=== PATIENT | female | born 1980 | race Caucasian/White ===

== ENCOUNTER → 2020-10-19 13:30 | Outpatient (CLI) | payer OTHER, SELFPAY ==
--- NOTE | 2020-10-19 13:32 | DI.RAD.S_ITS ---
PROCEDURE: XR ACUTE ABDOMEN SERIES INDICATIONS: abdominal pain/bloating TECHNIQUE: One view chest and two views of the abdomen were acquired. COMPARISON: None. FINDINGS: Surgical changes and devices: None. Chest: Lungs are clear. Heart size is normal. No pleural effusions. No pneumoperitoneum. Abdomen: Bowel gas pattern is normal. No suspicious calcifications. Visualized solid organ contours appear normal. No transition point seen. 4 mm calcifications projecting in the regions of both kidneys, technically nonspecific. Superimposed debris in the intestinal tract is in the differential. Bones: No suspicious bony lesions. Mild levocurvature. IMPRESSION: No specific evidence of bowel obstruction seen at this time although if the patient's symptoms do not improve, continued surveillance with abdominal series radiographs could be performed. Bilateral upper abdominal calcifications, technically nonspecific although if there is clinical suspicion for urolithiasis, CT KUB could be performed. Dictated by: Stan Morales M.D. on 10/19/2020 at 15:06 Approved by: Stan Morales M.D. on 10/19/2020 at 15:08
== END ==
PROVIDERS: PCP Family Medicine; Referring Provider Family Medicine; Visit Provider Family Medicine
DX: R14.0 Abdominal distension (gaseous) (principal); K59.00 Constipation, unspecified; R10.9 Unspecified abdominal pain
CPT/HCPCS: 74022

== ENCOUNTER 2020-10-30 23:17 | Emergency (ER) | payer OTHER, SELFPAY ==
[2020-10-30 23:35] VITALS: BP 151/67; PULSE 82; RESP 17; TEMP 36.9; O2SAT 100; BMI 19.1
--- NOTE | 2020-10-30 23:37 | DI.RAD.S_ITS ---
PROCEDURE: XR CHEST 1V INDICATIONS: chest pain TECHNIQUE: One view of the chest was acquired. COMPARISON: None. FINDINGS: Surgical changes and devices: None. Lungs and pleura: Lungs are clear. No pleural effusions or pneumothorax. Mediastinum: Mediastinal contours appear normal. Heart size is normal. Bones and chest wall: No suspicious bony lesions. Overlying soft tissues appear unremarkable. IMPRESSION: Normal for age, source of current chest pain symptoms is not seen. Dictated by: Vega Falcon M.D. on 10/31/2020 at 7:50 Approved by: Vega Falcon M.D. on 10/31/2020 at 7:50
[2020-10-30 23:48] VITALS: PULSE 70; RESP 30; O2SAT 100
[2020-10-31] VITALS (16 sets, daily range): BP systolic 95–116; BP diastolic 61–74; PULSE 63–80; RESP 12–34; O2SAT 71–100
--- NOTE | 2020-10-31 | ED.CHESTPAIN ---
HPI - Chest Pain General Chief Complaint: Chest Pain Stated Complaint: chest pain Time Seen by Provider: 10/30/20 23:24 Source: patient Mode of arrival: Ambulatory Limitations: no limitations History of Present Illness HPI narrative: 40-year-old female nonsmoker with history of increasing episodes of constipation presents with significant other and a chief complaint of epigastric and lower central chest pain and pressure which started a few hours ago. She states that she was at rest when it began and it has slowly worsened. She denies any obvious provocation, palliation or radiation. She denies other symptoms such as dizziness, weakness or lightheadedness. She denies any shortness of breath, nausea or vomiting. She denies any history of the same. She has had some recent travel but denies any history of blood clot or cancer. Related Data Home Medications Medication Instructions Recorded Confirmed VITAMIN D 800 PO Q DAY #0 07/20/11 10/02/20 Allergies Allergy/AdvReac Type Severity Reaction Status Date / Time Meperidine Allergy Mild Uncoded 04/17/19 08:53 Oxycodone Allergy Mild Uncoded 04/17/19 08:53 Penicillin Allergy Mild Uncoded 04/17/19 08:53 Promethazine Allergy Mild Uncoded 04/17/19 08:53 Review of Systems Constitutional Constitutional: Denies chills, Denies fatigue, Denies fever(s), Denies frequent falls, Denies lethargy and Denies weakness Eyes Eyes: Denies change in vision, Denies eye discharge, Denies irritation and Denies loss of vision ENT Ears, Nose, Mouth, and Throat: Denies change in voice, Denies dizziness, Denies neck pain, Denies sore throat and Denies throat swelling Cardiovascular Cardiovascular: Denies irregular heart rhythm, Denies lightheadedness, Denies palpitations, Denies dyspnea, Denies dyspnea on exertion and Denies orthopnea Respiratory Respiratory: Denies cough, Denies dyspnea, Denies dyspnea on exertion and Denies wheezing Gastrointestinal Gastrointestinal: Denies abdominal pain, Denies change in bowel habits, Denies diarrhea, Denies nausea and Denies vomiting Musculoskeletal Musculoskeletal: Denies neck pain and Denies numbness Integumentary/Breasts Skin/Breast: Denies pruritus, Denies erythema, Denies rash and Denies wounds Neurologic Neurologic: Denies behavioral changes, Denies confusion, Denies dizziness, Denies frequent falls, Denies loss of vision, Denies numbness and Denies weakness Psychiatric Psychiatric: Denies anxiety, Denies behavioral changes, Denies confusion, Denies depression, Denies homicidal ideation and Denies suicidal ideation Endocrine Endocrine: Denies fatigue, Denies flushing and Denies palpitations Hematologic/Lymphatic Hematologic/Lymphatic: Denies easy bruising Allergic/Immunologic Allergic/Immunologic: Denies urticaria, Denies throat swelling and Denies wheezing Patient History Medical History (Updated 10/31/20 @ 03:38 by Vasile Feliz DO) Abdominal bloating Constipation Endometriosis Injury of coccyx Otalgia, left ear Surgical History (Updated 02/09/18 @ 20:24 by Tigist Chung) History of total vaginal hysterectomy (TVH) (~2008) Family History (Updated 04/17/19 @ 09:27 by Eli Torres DO) Mother Age: 78 Cancer Thyroid cancer Uterine cancer Hypertension Osteoporosis Hyperlipidemia Father Age: 80 Hypertension Gout Spinal stenosis Hyperlipidemia TIA (transient ischemic attack) Brother Age: 50 No problems noted. Brother Age: 47 No problems noted. Social History Smoking Status: Never smoker Smoking Status: Never smoker Exam Narrative Exam Narrative: GENERAL: [40] year old patient appears stated age. Well-developed patient, in mild distress. HEAD: Atraumatic. Normocephalic. EYES: Pupils equal round and reactive. Extraocular motions intact. No scleral icterus. No injection or drainage. ENT: Nose without bleeding, purulent drainage. Throat without erythema, tonsillar hypertrophy or exudate. Airway patent. NECK: Trachea midline. Non tender CARDIOVASCULAR: Regular rate and rhythm without murmurs, gallops, or rubs. RESPIRATORY: Clear to auscultation. Breath sounds equal bilaterally. No wheezes, rales, or rhonchi. GASTROINTESTINAL: Abdomen soft, non-tender, nondistended. EXTREMITIES: No edema or joint tenderness. BACK: Nontender without deformity or crepitance. No flank tenderness. NEURO: AOx3. SKIN: No rash or erythema of visible areas Initial Vital Signs Initial Vital Signs: Vital Signs Temperature 98.5 F 10/30/20 23:35 Pulse Rate 82 10/30/20 23:35 Respiratory Rate 17 10/30/20 23:35 Blood Pressure 151/67 H 10/30/20 23:35 Pulse Oximetry 100 10/30/20 23:35 Scores HEART Score Heart Score history: Slightly Suspicious Heart Score EKG: Non-Specific repolarization disturbance Heart Score Age: < 45 years old Heart Score risk factors: No known risk factors Heart Score troponin: < or = to normal limit Heart Score Total: 1 Course Orders Ordered: ED Orders 10/30/20 23:37 XR chest 1V Stat 10/30/20 23:45 Complete Blood Count AUTO DIFF Stat Comprehensive Metabolic Panel Stat Lipase Stat Troponin & CK Cardiac Panel Stat 10/31/20 EKG-12 Lead Stat 10/31/20 00:40 D Dimer Stat 10/31/20 01:36 XR abdomen min 2V Stat 10/31/20 01:55 Troponin I Stat Discontinued Medications Aspirin (Aspirin 81 Mg Chew Tab) 324 mg PO NOW ONE Stop: 10/30/20 23:38 Last Admin: 10/31/20 00:08 Dose: 324 mg Documented by: GAYE Sodium Chloride (Normal Saline 0.9%) 1,000 mls @ 150 mls/hr IV CONT STACIE Last Infusion: 10/31/20 04:04 Dose: 1,540 mls/hr Documented by: Admin: 10/31/20 00:04 Dose: 150 mls/hr Documented by: GAYE Vital Signs Vital signs: Vital Signs - 8 hr 10/30/20 23:35 10/30/20 23:48 10/31/20 00:00 Temperature 98.5 F Pulse Rate 82 70 63 Respiratory Rate 17 30 H 29 H Blood Pressure 151/67 H 115/68 Pulse Oximetry 100 100 100 10/31/20 00:15 10/31/20 00:30 10/31/20 00:45 Temperature Pulse Rate 69 72 74 Respiratory Rate 15 14 12 Blood Pressure 112/72 107/74 103/72 Pulse Oximetry 100 100 100 10/31/20 01:00 10/31/20 01:15 10/31/20 01:30 Temperature Pulse Rate 74 75 77 Respiratory Rate 17 19 20 Blood Pressure 101/66 103/66 116/73 Pulse Oximetry 100 100 100 10/31/20 01:52 10/31/20 02:00 10/31/20 02:15 Temperature Pulse Rate 80 67 66 Respiratory Rate 20 18 28 H Blood Pressure 104/67 103/68 103/63 Pulse Oximetry 71 L 100 100 10/31/20 02:30 10/31/20 02:45 10/31/20 03:00 Temperature Pulse Rate 71 68 66 Respiratory Rate 34 H 33 H 29 H Blood Pressure 95/62 99/65 99/67 Pulse Oximetry 100 100 100 10/31/20 03:15 10/31/20 03:30 10/31/20 04:00 Temperature Pulse Rate 68 64 76 Respiratory Rate 21 21 Blood Pressure 101/63 96/61 Pulse Oximetry 99 99 98 MDM - Chest Pain Lab Data Result diagrams: 10/30/20 23:45 10/30/20 23:45 Labs: Lab Results 10/30/20 10/30/20 10/31/20 Range/Units 23:45 23:45 00:40 WBC 5.0 (4.5-11.0) X10^3/uL RBC 4.29 (4.0-5.2) X10^6/uL Hgb 13.5 (12.0-16.0) g/dL Hct 40.6 (36-46) % MCV 94.4 (80-100) fL MCH 31.4 (26-34) PG MCHC 33.3 (30-36) % RDW 12.6 (11.6-14.8) % Plt Count 164 (150-400) X10^3/uL Neut % (Auto) 28.3 L (50-75) % Lymph % (Auto) 60.1 H (25-40) % [place] % (Auto) 8.7 (3-14) % Eos % (Auto) 2.3 (2-4) % Baso % (Auto) 0.6 (0-2) % Neut # (Auto) 1400 L (1899-5377) /uL Lymph # (Auto) 3000 (3649-3599) /uL [place] # (Auto) 400 (0-900) /uL Eos # (Auto) 100 (0-450) /uL Baso # (Auto) 0 (0-100) /uL D-Dimer < 200 (<230) ng/mL Sodium 137 (137-145) mmol/L Potassium 3.7 (3.4-5.1) mmol/L Chloride 103 (98-107) mmol/L Carbon Dioxide 25 (22-32) mmol/L BUN 11 (7-17) mg/dL Creatinine 0.68 (0.52-1.04) mg/dL Estimated GFR > 60.0 (>60) mL/min BUN/Creatinine Ratio 16.2 (6-22) Glucose 83 (70-100) mg/dL Calcium 9.1 (8.4-10.2) mg/dL Total Bilirubin 0.4 (0.2-1.3) mg/dL AST 23 (14-36) IU/L ALT 14 (<35) IU/L Alkaline Phosphatase 32 L (38-126) U/L Total Creatine Kinase 46 (30-135) U/L CK-MB (CK-2) TNP CK-MB (CK-2) Rel Index TNP Troponin I < 0.012 (0.01-0.034) ng/mL Total Protein 7.1 (6.3-8.2) g/dL Albumin 4.3 (3.5-5.0) g/dL Globulin 2.8 (1.7-4.1) g/dL Albumin/Globulin Ratio 1.5 (1.0-2.8) Lipase 139 (23-300) U/L 10/31/20 Range/Units 01:55 WBC (4.5-11.0) X10^3/uL RBC (4.0-5.2) X10^6/uL Hgb (12.0-16.0) g/dL Hct (36-46) % MCV (80-100) fL MCH (26-34) PG MCHC (30-36) % RDW (11.6-14.8) % Plt Count (150-400) X10^3/uL Neut % (Auto) (50-75) % Lymph % (Auto) (25-40) % [place] % (Auto) (3-14) % Eos % (Auto) (2-4) % Baso % (Auto) (0-2) % Neut # (Auto) (4771-1839) /uL Lymph # (Auto) (1320-7146) /uL [place] # (Auto) (0-900) /uL Eos # (Auto) (0-450) /uL Baso # (Auto) (0-100) /uL D-Dimer (<230) ng/mL Sodium (137-145) mmol/L Potassium (3.4-5.1) mmol/L Chloride (98-107) mmol/L Carbon Dioxide (22-32) mmol/L BUN (7-17) mg/dL Creatinine (0.52-1.04) mg/dL Estimated GFR (>60) mL/min BUN/Creatinine Ratio (6-22) Glucose (70-100) mg/dL Calcium (8.4-10.2) mg/dL Total Bilirubin (0.2-1.3) mg/dL AST (14-36) IU/L ALT (<35) IU/L Alkaline Phosphatase (38-126) U/L Total Creatine Kinase (30-135) U/L CK-MB (CK-2) CK-MB (CK-2) Rel Index Troponin I < 0.012 (0.01-0.034) ng/mL Total Protein (6.3-8.2) g/dL Albumin (3.5-5.0) g/dL Globulin (1.7-4.1) g/dL Albumin/Globulin Ratio (1.0-2.8) Lipase (23-300) U/L Imaging Data Abdominal x-ray: Radiologist's Impression: Nonspecific but nonobstructive bowel gas pattern. Mild colonic fecal burden at the level of the ascending and descending colon, possible bilateral nephrolithiasis MDM Narrative Medical decision making narrative: Multiple causes of chest pain considered including MO, PE, pneumothorax, pneumonia, aortic dissection, and pleurisy. Patient reports no radiation, no diaphoresis, no provocation with exertion, and no vomiting. Multiple EKGs are nonischemic and troponin x2 is undetectable. Pulmonary embolism considered and though pretest probability is extremely low D-dimer was ordered which was also negative. Other diagnoses such as biliary and pancreatic considered but thought unlikely given lack of reproducible pain and lab abnormalities. Esophageal spasm, ulcer and other GI symptoms considered likely given presentation. Return precautions given and questions answered to her apparent satisfaction. Discharge Plan Departure Patient Disposition: Home Clinical Impression: Atypical chest pain Instructions: DI for Atypical Chest Pain Activity Restrictions/Additional Instructions: *You have been diagnosed with [atypical chest pain. Lab work, EKGs and imaging are all very reassuring. Heart attack, blood clot, pneumonia and other serious conditions were considered but thought very unlikely] *What to do: *Please continue to take your regular medications as directed. [ ] New medication prescriptions sent to your pharmacy: [ ] [ ] New medication written as a paper prescription [ x] No new medications given *Please follow up with your primary care provider in 2-3 days, call for an appointment. Let them know you were seen in the Emergency Department and that we ask that you be seen in follow up. We will electronically transmit a record of today's note if your PCP is in our system *If you do not have a primary care provider please contact the [facility] Resource line at [phone]. They will ask some questions about your medical history and help get you set up with a doctor in the community. *Return to Emergency Department if you should have any new, worsening or concerning symptoms, such as [fever greater than 101 F, shaking chills, worsening pain, persistent vomiting or other bothersome symptoms] Prescriptions: No Action VITAMIN D 800 PO Q DAY Qty: 0 RF: 0 Referrals: Eli Torres DO [Primary Care Provider] -
[2020-10-31 00:01] LABS: Add Manual Diff / Slide Review NO; Basophils Absolute Auto 0 /uL (0-100); Basophils Percent Auto 0.6 % (0-2); Eosinophils Absolute Auto 100 /uL (0-450); Eosinophils Percent Auto 2.3 % (2-4); Hematocrit 40.6 % (36-46); Hemoglobin 13.5 g/dL (12.0-16.0); Lymphocytes Absolute Auto 3000 /uL (1100-4500); Lymphocytes Percent Auto 60.1 % (25-40); Mean Corpuscular HGB Conc 33.3 % (30-36); Mean Corpuscular Hemoglobin 31.4 PG (26-34); Mean Corpuscular Volume 94.4 fL (80-100); Monocytes Absolute Auto 400 /uL (0-900); Monocytes Percent Auto 8.7 % (3-14); Neutrophils Absolute Auto 1400 /uL (1500-7000); Neutrophils Percent Auto 28.3 % (50-75); Platelet Count 164 X10^3/uL (150-400); Red Blood Cell Count 4.29 X10^6/uL (4.0-5.2); Red Cell Distribution Width 12.6 % (11.6-14.8)
[2020-10-31] MEDS: SODIUM CHLORIDE 0.9% 1,000 ML 150 ML IV (00:04)
[2020-10-31 00:05] LABS: Alanine Aminotransferase 14 IU/L (<35); Albumin 4.3 g/dL (3.5-5.0); Albumin Globulin Ratio 1.5 (1.0-2.8); Alkaline Phosphatase 32 U/L (38-126); Aspartate Aminotransferase 23 IU/L (14-36); BUN Creatinine Ratio 16.2 (6-22); Bilirubin Total 0.4 mg/dL (0.2-1.3); Blood Urea Nitrogen 11 mg/dL (7-17); Calcium 9.1 mg/dL (8.4-10.2); Carbon Dioxide 25 mmol/L (22-32); Chloride 103 mmol/L (98-107); Creatine Kinase 46 U/L (30-135); Estimated Glomerular Filt Rate > 60.0 mL/min (>60); Globulin 2.8 g/dL (1.7-4.1); Glucose 83 mg/dL (70-100); HEMOLYSIS < 15 (0-50); Lipase 139 U/L (23-300); Potassium 3.7 mmol/L (3.4-5.1); Sodium 137 mmol/L (137-145); Total Protein 7.1 g/dL (6.3-8.2)
[2020-10-31] MEDS: ASPIRIN 81 MG CHEW TAB 324 MG PO (00:08)
[2020-10-31 00:17] LABS: Troponin I < 0.012 ng/mL (0.01-0.034)
[2020-10-31 01:16] LABS: D Dimer < 200 ng/mL (<230)
--- NOTE | 2020-10-31 01:36 | DI.RAD.S_ITS ---
PROCEDURE: XR ABDOMEN MIN 2V INDICATIONS: chest pain, constipation TECHNIQUE: 2 views of the abdomen were acquired. COMPARISON: None. FINDINGS: Surgical changes and devices: None. Bowel: No pneumoperitoneum. The bowel gas pattern is normal. Moderate fecal debris. Soft tissues: No masses; visualized solid organ contours appear normal in size. Bilateral calcified renal stones are noted. Bones: No suspicious bony abnormalities. IMPRESSION: 1. Bilateral nephrolithiasis. 2. Moderate fecal debris. Comment: Final report is concordant with preliminary interpretation provided by [facility]. Dictated by: Akhil Jacobsen M.D. on 10/31/2020 at 8:48 Approved by: Akhil Jacobsen M.D. on 10/31/2020 at 8:49
[2020-10-31 02:26] LABS: Troponin I < 0.012 ng/mL (0.01-0.034)
== END 2020-10-31 04:03 | disposition home or self-care (01) ==
PROVIDERS: Emergency Provider Emergency Medicine; PCP Family Medicine
DX: R07.89 Other chest pain (principal); R10.13 Epigastric pain
CPT/HCPCS: 36415; 71045; 74019; 80053; 82550; 82553; 83690; 84484; 85025; 85379; 93005; 96360; 96361; 99284

== ENCOUNTER → 2020-11-03 12:33 | Outpatient (CLI) | payer OTHER, SELFPAY ==
[2020-11-03 15:25] LABS: TSH w/ Reflex to FT4 1.41 uIU/mL (0.47-4.68)
== END ==
PROVIDERS: PCP Family Medicine; Referring Provider Nurse Practitioner Family; Visit Provider Nurse Practitioner Family
DX: K59.00 Constipation, unspecified (principal)
CPT/HCPCS: 84443

== ENCOUNTER → 2020-11-30 12:47 | Outpatient (CLI) | payer OTHER, SELFPAY ==
--- NOTE | 2020-11-30 | DI.CT.S_ITS ---
PROCEDURE: CT KIDNEY URETER BLADDER (KUB) INDICATIONS: HISTORY OF CALCULUS OF KIDNEY TECHNIQUE: Axial sections were acquired from the lung bases to the pubic symphysis. Coronal and sagittal reformats were performed. For radiation dose reduction, the following was used: automated exposure control, adjustment of mA and/or kV according to patient size. COMPARISON: None. FINDINGS: Image quality: Excellent. Lung bases: Unremarkable. Heart: No significant findings. URINARY: Right Kidney: No stones or hydronephrosis. Right Ureter: No hydroureter. Left Kidney: No stones or hydronephrosis. Left Ureter: No hydroureter. Bladder: Decompressed. No stones. ABDOMEN: Liver: Calcified granuloma. Small cyst in the right lobe of the liver. Gallbladder: Unremarkable. Biliary ducts: Unremarkable. Pancreas: Unremarkable. Spleen: Unremarkable. Adrenal Glands: Unremarkable. Stomach and Bowel: Stomach, small bowel loops, and colon are unremarkable. Peritoneum: No abnormal intraperitoneal fluid. No free air. Ventral Wall: No hernia. Abdominal Nodes: No enlarged retroperitoneal or mesenteric lymph nodes. Vessels: Aorta and inferior vena cava are normal in size. PELVIS: Pelvic Organs: Uterus is absent. Pelvic Nodes: Unremarkable. Miscellaneous: No inguinal hernias are seen. Bones: Unremarkable. IMPRESSION: 1. No kidney stones. No hydronephrosis. 2. No dilated loops of bowel seen. No free fluid. Dictated by: Joel Ayon M.D. on 11/30/2020 at 14:45 Approved by: Joel Ayon M.D. on 11/30/2020 at 14:52
--- NOTE | 2020-11-30 12:48 | DI.CT.S_ITS ---
PROCEDURE: CT ABDOMEN PELVIS W CON INDICATIONS: acute onset constipation now with thin stools, epigastric pa TECHNIQUE: After the administration of oral and intravenous contrast, axial sections were acquired from the lung bases to the pubic symphysis. Coronal and sagittal reformats were performed. For radiation dose reduction, the following was used: automated exposure control, adjustment of mA and/or kV according to patient size. COMPARISON:[facility], CT, CT KIDNEY URETER BLADDER (KUB), 11/30/2020, 13:00. FINDINGS: Image quality: Excellent. Lung bases: Unremarkable. Heart: No significant findings. ABDOMEN: Liver: Subcentimeter probable right lobe liver cyst versus hemangioma. Otherwise unremarkable. Gallbladder: Unremarkable. Biliary ducts: Unremarkable. Pancreas: Unremarkable. Spleen: Unremarkable. Adrenal Glands: Unremarkable. Kidneys and Ureters: Unremarkable. Stomach and Bowel: Stomach, small bowel loops, and colon are unremarkable. The colon is redundant. Moderate fecal load. Peritoneum: No abnormal intraperitoneal fluid. No free air. Ventral Wall: No hernia. Abdominal Nodes: No retroperitoneal or mesenteric adenopathy by size criteria. Vessels: Aorta and inferior vena cava are normal in size. PELVIS: Pelvic Organs: Uterus is surgically absent. Bladder: Unremarkable. Pelvic Nodes: No enlarged lymph nodes. Miscellaneous: No inguinal hernias are seen. Bones: Unremarkable. IMPRESSION: 1. No evidence of acute abdominal process. 2. Redundant colon with moderate fecal load. Dictated by: Akhil Jacobsen M.D. on 11/30/2020 at 16:25 Approved by: Akhil Jacobsen M.D. on 11/30/2020 at 16:30
== END ==
PROVIDERS: PCP Family Medicine; Referring Provider Urology; Visit Provider Urology
DX: R10.13 Epigastric pain (principal); Q43.8 Other specified congenital malformations of intestine; R63.4 Abnormal weight loss; K59.00 Constipation, unspecified; R19.8 Other specified symptoms and signs involving the digestive system and abdomen; Z87.442 Personal history of urinary calculi
CPT/HCPCS: 74176; 74177

== ENCOUNTER → 2020-12-21 08:44 | Outpatient (CLI) | payer OTHER, SELFPAY ==
[2020-12-21 13:59] LABS: COVID19 -Nasal RAPID Negative (Negative)
== END ==
PROVIDERS: PCP Family Medicine; Visit Provider Nurse Practitioner
DX: Z20.822 Contact with and (suspected) exposure to COVID-19 (principal); Z01.812 Encounter for preprocedural laboratory examination
CPT/HCPCS: 87635

== ENCOUNTER 2020-12-22 09:36 | Day surgery (SDC) | payer OTHER, SELFPAY ==
[2020-12-22] MEDS: SODIUM CHLORIDE 0.9% 1,000 ML 100 ML IV (09:53)
[2020-12-22 09:58] VITALS: BP 105/69; PULSE 86; RESP 20; TEMP 36.7; O2SAT 100; BMI 19.5
--- NOTE | 2020-12-22 10:06 | P.HP_ITS ---
History of Present Illness History of Present Illness Date Patient Seen: 12/22/20 Time Patient Seen: 10:06 [place] [facility] [place] History Medical History Abdominal bloating Altered bowel function (08/2020) Constipation Endometriosis Injury of coccyx Otalgia, left ear Weight loss, unintentional (09/2020) Surgical History History of total vaginal hysterectomy (TVH) (~2008) Family & Social History Family History Mother Age: 78 Cancer Thyroid cancer Uterine cancer Hypertension Osteoporosis Hyperlipidemia Father Age: 80 Hypertension Gout Spinal stenosis Hyperlipidemia TIA (transient ischemic attack) Brother Age: 50 No problems noted. Brother Age: 48 No problems noted. Tobacco & Substance use: Smoking Status Never smoker Meds Home Medications and Allergies Home Medications Medication Instructions Recorded Confirmed Type VITAMIN D 800 PO Q DAY PRN #0 11/11/20 History estradiol SUBCUT [id number] 11/11/20 11/11/20 History testosterone implant pellet IMPLANT Q3M 11/11/20 History Allergies Allergy/AdvReac Type Severity Reaction Status Date / Time Meperidine Allergy Mild Uncoded 12/22/20 09:55 Oxycodone Allergy Mild Uncoded 12/22/20 09:55 Penicillin Allergy Mild Uncoded 12/22/20 09:55 Promethazine Allergy Mild Uncoded 12/22/20 09:55 Review of Systems Review of Systems ROS: Yes All systems reviewed with the patient and are negative except as otherwise documented Exam Const General: cooperative and comfortable Orientation: alert [facility] Head: normocephalic Ears: external ears normal Nose: external nose normal Face and sinus: normal facial exam Mouth: oral mucosae normal Eyes General: appearance normal, both eyes and all related structures Neck Neck: normal visual inspection Chest Chest: normal inspection of the chest Resp Effort & Inspection: normal respiratory effort Auscultation: clear to auscultation bilaterally Cardio Rate: regular rate Rhythm: regular rhythm Heart Sounds: no murmurs GI Inspection: normal to inspection Palpation: soft and No tender Auscultation: normal bowel sounds Skin General: no rashes or lesions noted and No jaundice Neuro General: patient alert and moves all extremities Cognition: normal cognition Speech: speech normal Extrem General: no pedal edema Psych Appearance: grossly normal Assessment & Plan Assessment & Plan narrative: Altered bowel habit, weight loss, right lower quadrant pain. Colonoscopy is planned for today.
--- NOTE | 2020-12-22 10:08 | PM.PREOP ---
Pre-operative Note COVID-19 COVID-19 status: Negative Result date/Date tested (Pos, Neg/Pending): 12/21/20 Interval Note History & Physical reviewed/Exam performed by Physician: Yes Changes to H&P: No ASA Class (for procedural sedation): II
[2020-12-22] MEDS: MIDAZOLAM 5 MG/5 ML VIAL IV (10:20)
[2020-12-22] MEDS: fentaNYL 250 MCG/5 ML INJ IV (10:20)
--- NOTE | 2020-12-22 10:40 | PM.OP.ENDO ---
Operative Date/Time/Diagnoses Date of procedure: 12/22/20 Time of procedure: 10:41 Pre-op diagnosis: Change in bowel habit right lower quadrant pain weight loss Post-op diagnosis: same Procedure & Clinicians Same procedure as scheduled: Yes Indications: Change in bowel habit right lower quadrant pain and a weight loss Surgeon: Clayton Meade Procedure Notes SCOAP/Timeout: Done Procedure in detail: After the risks and benefits were explained, written and verbal informed consent was obtained. The patient was brought into the procedure room and placed into the left lateral decubitus position. Conscious sedation medication was applied as per nursing documentation. Digital rectal examination was accomplished. The scope was introduced into the patient and advanced under direct visualization to the cecum as identified by the appendiceal orifice and ileocecal valve. The scope was slowly withdrawn to carefully examine the mucosa for any defects or lesions. Comprehensive imaging was accomplished throughout the rectum including the dentate line. The colon was decompressed, the scope was then removed from the patient who tolerated the procedure well. Scope withdrawal time: 7 minutes Sedation minutes: 21 Specimen(s): none sent Complications: none Impression: Patient had an exceedingly tortuous sigmoid colon. We applied a small amount of right lower quadrant pressure to enable the scope to navigate through this location. That said there is no evidence of any proctocolitis no strictures no mass lesions no mucosal pathology to account for her reported symptoms. There was some superficial subepithelial erythema noted in the rectum consistent with prep artifact. The terminal ileum was interrogated and appeared normal. Endoscopic diagnosis Visually normal colonoscopy and terminal ileoscopy Post-procedure Plan for aftercare: Patient is encouraged to engage in a fairly aggressive bowel regimen for soft regular movements. Follow-up in GI clinic on an as-needed basis. (patient indicates that prior to colonoscopy weight has stabilized) follow-up in primary care as before. Disposition: PACU
[2020-12-22 10:44] VITALS: BP 95/48; PULSE 74; RESP 18; TEMP 36.5; O2SAT 100
[2020-12-22 10:48] VITALS: BP 92/55; PULSE 77; RESP 16; O2SAT 100
[2020-12-22 10:54] VITALS: BP 98/58; PULSE 84; RESP 15; TEMP 36.7; O2SAT 100
[2020-12-22 11:03] VITALS: BP 103/58; PULSE 67; RESP 14; TEMP 36.7; O2SAT 100
== END 2020-12-22 11:22 | disposition home or self-care (01) ==
PROVIDERS: PCP Family Medicine; Referring Provider Internal Medicine Gastroenterology; Visit Provider Internal Medicine Gastroenterology
PROC: 0DJD8ZZ Inspection of Lower Intestinal Tract, Via Natural or Artificial Opening Endoscopic (ICD-10-PCS; CPT 45378; principal; 2020-12-22 10:30)
DX: R19.4 Change in bowel habit (principal); R10.31 Right lower quadrant pain; R63.4 Abnormal weight loss
CPT/HCPCS: 45378; J2250; J3010

== ENCOUNTER 2022-07-13 15:36 | Emergency (ER) | payer OTHER, SELFPAY ==
[2022-07-13 15:47] VITALS: BP 148/80; PULSE 97; RESP 16; TEMP 37.2; O2SAT 100; BMI 22.1
--- NOTE | 2022-07-13 15:50 | DI.RAD.S_ITS ---
PROCEDURE: XR CHEST 1V INDICATIONS: chest pain TECHNIQUE: One view of the chest was acquired. COMPARISON: [facility], CR, XR CHEST 1V, 10/30/2020, 23:54. FINDINGS: Surgical changes and devices: None. Lungs and pleura: Lungs are clear. No pleural effusions or pneumothorax. Mediastinum: Mediastinal contours appear normal. Heart size is normal. Bones and chest wall: No suspicious bony lesions. Overlying soft tissues appear unremarkable. IMPRESSION: No evidence acute pulmonary process. Dictated by: Akhil Jacobsen M.D. on 07/13/2022 at 16:11 Approved by: Akhil Jacobsen M.D. on 07/13/2022 at 16:12
[2022-07-13 16:25] LABS: Add Manual Diff / Slide Review NO; Basophils Absolute Auto 0 /uL (0-100); Basophils Percent Auto 0.5 % (0-2); Eosinophils Absolute Auto 100 /uL (0-450); Hematocrit 41.6 % (36-46); Hemoglobin 13.9 g/dL (12.0-16.0); Lymphocytes Absolute Auto 2400 /uL (1100-4500); Mean Corpuscular HGB Conc 33.3 % (30-36); Mean Corpuscular Hemoglobin 31.4 PG (26-34); Mean Corpuscular Volume 94.1 fL (80-100); Monocytes Absolute Auto 500 /uL (0-900); Monocytes Percent Auto 8.1 % (3-14); Neutrophils Absolute Auto 3400 /uL (1500-7000); Neutrophils Percent Auto 52.4 % (50-75); Platelet Count 195 X10^3/uL (150-400); Prothrombin Time 11.3 SECONDS (10.1-12.7); Red Blood Cell Count 4.42 X10^6/uL (4.0-5.2); Red Cell Distribution Width 12.6 % (11.6-14.8); White Blood Cell Count 6.4 X10^3/uL (4.5-11.0)
[2022-07-13 16:28] LABS: PTT Partial Thromboplastin Tim 31 SECONDS (26-36)
[2022-07-13 16:34] LABS: Alanine Aminotransferase 23 IU/L (<35); Albumin 4.4 g/dL (3.5-5.0); Albumin Globulin Ratio 1.3 (1.0-2.8); Alkaline Phosphatase 36 U/L (38-126); Aspartate Aminotransferase 24 IU/L (14-36); BUN Creatinine Ratio 14.8 (6-22); Bilirubin Total 0.5 mg/dL (0.2-1.3); Blood Urea Nitrogen 12 mg/dL (7-17); Calcium 8.6 mg/dL (8.4-10.2); Carbon Dioxide 29 mmol/L (22-32); Chloride 102 mmol/L (98-107); Creatine Kinase 41 U/L (30-135); Estimated Glomerular Filt Rate > 60 mL/min (>60); Globulin 3.3 g/dL (1.7-4.1); Glucose 79 mg/dL (70-100); HEMOLYSIS < 15 (0-50); Lipase 96 U/L (23-300); Magnesium 1.9 mg/dL (1.6-2.3); Potassium 3.8 mmol/L (3.4-5.1); Sodium 138 mmol/L (137-145); Total Protein 7.7 g/dL (6.3-8.2)
[2022-07-13 16:45] LABS: Troponin I < 0.012 ng/mL (0.01-0.034)
[2022-07-13 18:56] VITALS: BP 138/67; RESP 18; O2SAT 100
[2022-07-13 19:00] VITALS: O2SAT 100
[2022-07-13 19:53] LABS: Troponin I < 0.012 ng/mL (0.01-0.034)
--- NOTE | 2022-07-13 20:13 | ED_ITS ---
HPI - Chest Pain General Chief Complaint: Chest Pain Stated Complaint: chest pain Time Seen by Provider: 07/13/22 18:53 Mode of arrival: Family Vehicle History of Present Illness HPI narrative: Patient is a healthy 42-year-old female who presents today with chest discomfort. She reports that it is on her left side it lasts for about 3 minutes comes and goes frequently throughout the day. It has been ongoing for a number of weeks. It when it is present it is reproducible with palpation. She is not significantly short of breath it does not radiate. She reports that she was COVID positive June 17 she took Paxil COVID since then she is had kind of cough. She thought it was just post COVID symptoms. However she continues to get these intermittent chest discomfort on the left side, she saw her lap cutter today who recommended that she come be evaluated. Pain is really not any worse with positioning. Related Data Home Medications Medication Instructions Recorded Confirmed VITAMIN D 800 PO Q DAY PRN ##0 11/11/20 03/21/22 estradiol SUBCUT [id number] 11/11/20 03/21/22 testosterone implant pellet implant Q3M 11/11/20 03/21/22 Previous Rx's Medication Instructions Recorded capsaicin-skin cleanser 8 % See Rx Instructions topical 07/15/21 topical kit (Qutenza) .COMPLEX #4 ea Allergies Allergy/AdvReac Type Severity Reaction Status Date / Time meperidine Allergy Mild Verified 07/13/22 15:50 oxycodone Allergy Mild Verified 07/13/22 15:50 Penicillins Allergy Mild Verified 07/13/22 15:50 promethazine Allergy Mild Verified 07/13/22 15:50 Review of Systems Review of Systems ROS Unobtainable: All systems reviewed & are unremarkable except as noted in HPI and below Patient History Medical History Abdominal bloating Altered bowel function (08/2020) Constipation Endometriosis Injury of coccyx Otalgia, left ear Weight loss, unintentional (09/2020) Surgical History History of total vaginal hysterectomy (TVH) (~2008) Family History Mother Age: 80 Cancer Thyroid cancer Uterine cancer Hypertension Osteoporosis Hyperlipidemia Father Age: 82 Hypertension Gout Spinal stenosis Hyperlipidemia TIA (transient ischemic attack) Brother Age: 52 No problems noted. Brother Age: 49 No problems noted. Social History household members: spouse Smoking Status: Never smoker Smoking Status: Never smoker Substance Use Type: does not use Exam Initial Vital Signs Initial Vital Signs: Vital Signs Temperature 98.9 F 07/13/22 15:47 Pulse Rate 97 H 07/13/22 15:47 Respiratory Rate 16 07/13/22 15:47 Blood Pressure 148/80 H 07/13/22 15:47 Pulse Oximetry 100 07/13/22 15:47 Oxygen Delivery Method Room Air 07/13/22 15:47 GENERAL: Alert pleasant 42-year-old female and in no acute distress. HEENT: Head atraumatic,EOMI, pupils reactive, face symmetric, moist mucous membranes CARDIOVASCULAR: Regular rate and rhythm without murmurs, rubs or gallops. RESPIRATORY: Breath sounds equal bilaterally, no wheezes rales or rhonchi. Pain anteriorly between ribs 4 and 6 on the left side reproducible to touch ABDOMEN: Soft, nontender. Normoactive bowel sounds all 4 quadrants. No guarding or rebound. EXTREMITIES: Normal range of motion, no clubbing or edema. Neurovascularly intact NEUROLOGICAL: Alert and oriented x4. SKIN: Warm, dry, no laceration, no petechiae, no rashes or lesions. Scores HEART Score Heart Score history: Slightly Suspicious Heart Score EKG: Normal Heart Score Age: < 45 years old Heart Score risk factors: No known risk factors Heart Score troponin: < or = to normal limit Heart Score Total: 0 Course Orders Ordered: ED Orders 07/13/22 19:08 Trop I [Troponin I] Stat Discontinued Medications Aspirin (Aspirin 81 Mg Chew Tab) 324 mg PO NOW ONE Stop: 07/13/22 15:51 Last Admin: 07/13/22 20:27 Dose: Not Given Documented By: PAULETTE Vital Signs Vital signs: Vital Signs - 8 hr 07/13/22 15:47 Temperature 98.9 F Pulse Rate 97 H Respiratory Rate 16 Blood Pressure 148/80 H Pulse Oximetry 100 Oxygen Delivery Method Room Air MDM - Chest Pain Lab Data 07/13/22 16:09 07/13/22 16:09 Labs: Lab Results 07/13/22 07/13/22 07/13/22 Range/Units 16:09 16:09 16:09 WBC 6.4 (4.5-11.0) X10^3/uL RBC 4.42 (4.0-5.2) X10^6/uL Hgb 13.9 (12.0-16.0) g/dL Hct 41.6 (36-46) % MCV 94.1 (80-100) fL MCH 31.4 (26-34) PG MCHC 33.3 (30-36) % RDW 12.6 (11.6-14.8) % Plt Count 195 (150-400) X10^3/uL Neut % (Auto) 52.4 (50-75) % Lymph % (Auto) 37.0 (25-40) % [place] % (Auto) 8.1 (3-14) % Eos % (Auto) 2.0 (2-4) % Baso % (Auto) 0.5 (0-2) % Neut # (Auto) 3400 (5320-6370) /uL Lymph # (Auto) 2400 (9101-4481) /uL [place] # (Auto) 500 (0-900) /uL Eos # (Auto) 100 (0-450) /uL Baso # (Auto) 0 (0-100) /uL PT 11.3 (10.1-12.7) SECONDS INR 1.0 (0.9-1.3) APTT 31 (26-36) SECONDS Sodium 138 (137-145) mmol/L Potassium 3.8 (3.4-5.1) mmol/L Chloride 102 (98-107) mmol/L Carbon Dioxide 29 (22-32) mmol/L BUN 12 (7-17) mg/dL Creatinine 0.81 (0.52-1.04) mg/dL Estimated GFR > 60 (>60) mL/min BUN/Creatinine Ratio 14.8 (6-22) Glucose 79 (70-100) mg/dL Calcium 8.6 (8.4-10.2) mg/dL Magnesium 1.9 (1.6-2.3) mg/dL Total Bilirubin 0.5 (0.2-1.3) mg/dL AST 24 (14-36) IU/L ALT 23 (<35) IU/L Alkaline Phosphatase 36 L (38-126) U/L Total Creatine Kinase 41 (30-135) U/L CK-MB (CK-2) TNP CK-MB (CK-2) Rel Index TNP Troponin I < 0.012 (0.01-0.034) ng/mL Total Protein 7.7 (6.3-8.2) g/dL Albumin 4.4 (3.5-5.0) g/dL Globulin 3.3 (1.7-4.1) g/dL Albumin/Globulin Ratio 1.3 (1.0-2.8) Lipase 96 (23-300) U/L 07/13/22 Range/Units 19:08 WBC (4.5-11.0) X10^3/uL RBC (4.0-5.2) X10^6/uL Hgb (12.0-16.0) g/dL Hct (36-46) % MCV (80-100) fL MCH (26-34) PG MCHC (30-36) % RDW (11.6-14.8) % Plt Count (150-400) X10^3/uL Neut % (Auto) (50-75) % Lymph % (Auto) (25-40) % [place] % (Auto) (3-14) % Eos % (Auto) (2-4) % Baso % (Auto) (0-2) % Neut # (Auto) (4659-8524) /uL Lymph # (Auto) (4208-9703) /uL [place] # (Auto) (0-900) /uL Eos # (Auto) (0-450) /uL Baso # (Auto) (0-100) /uL PT (10.1-12.7) SECONDS INR (0.9-1.3) APTT (26-36) SECONDS Sodium (137-145) mmol/L Potassium (3.4-5.1) mmol/L Chloride (98-107) mmol/L Carbon Dioxide (22-32) mmol/L BUN (7-17) mg/dL Creatinine (0.52-1.04) mg/dL Estimated GFR (>60) mL/min BUN/Creatinine Ratio (6-22) Glucose (70-100) mg/dL Calcium (8.4-10.2) mg/dL Magnesium (1.6-2.3) mg/dL Total Bilirubin (0.2-1.3) mg/dL AST (14-36) IU/L ALT (<35) IU/L Alkaline Phosphatase (38-126) U/L Total Creatine Kinase (30-135) U/L CK-MB (CK-2) CK-MB (CK-2) Rel Index Troponin I < 0.012 (0.01-0.034) ng/mL Total Protein (6.3-8.2) g/dL Albumin (3.5-5.0) g/dL Globulin (1.7-4.1) g/dL Albumin/Globulin Ratio (1.0-2.8) Lipase (23-300) U/L Imaging Data Chest x-ray: Radiologist's Impression: PROCEDURE:? XR CHEST 1V ? INDICATIONS:? chest pain ? TECHNIQUE:? One view of the chest was acquired.? ? COMPARISON:? [facility], , XR CHEST 1V, 10/30/2020, 23:54. ? FINDINGS:? ? Surgical changes and devices:? None.? ? Lungs and pleura:? Lungs are clear.? No pleural effusions or pneumothorax.? ? Mediastinum:? Mediastinal contours appear normal.? Heart size is normal.? ? Bones and chest wall:? No suspicious bony lesions.? Overlying soft tissues appear unremarkable.? ? IMPRESSION:? No evidence acute pulmonary process. ? ? ? Dictated by: Akhil Jacobsen M.D. on 07/13/2022 at 16:11 ? ECG Data Interpretation: Normal sinus rhythm rate 92 CA interval 122 QRS 76 QTC [address] elevation no CA depression no T-wave inversions similar to previous EKGs MDM Narrative Medical decision making narrative: Patient is a healthy 42-year-old female with no cardiac risk factors except for recent COVID infection presenting today with left-sided chest discomfort. It has been ongoing for number of weeks coming multiple times a day reproducible to touch lasting only 3 minutes. This is a very atypical presentation of acute coronary syndrome. Highly unlikely to be pulmonary embolism as well. Blood work is reassuring no leukocytosis anemia electrolyte abnormality or MELISSA. She is 2- troponins. EKGs negative. No evidence of pericarditis. I suspect is m ore of a costochondritis with the reproducibility and the fact that it stays in 1 particular area. She reports that she was coughing quite a bit. We did discuss that if it changes or gets worse and to return. Heart score is 0 Discharge Plan Departure Patient Disposition: Home Clinical Impression: Acute costochondritis Instructions: Costochondritis Activity Restrictions/Additional Instructions: *You have been diagnosed with costochondritis *What to do: At this time I think you might have strained or pulled your ribs. This is certainly not heart attack. He may try a dose of ibuprofen to see if it helps. If this changes or gets worse then return *Continue to take medications as directed Ibuprofen 600 mg every 6 hours needed for [id number] pain *Follow up with your primary care provider in 2-3 days or call [phone] *Return to ER if you should have increasing pain changing pain shortness of breath [or] any new, worsening or concerning symptoms Prescriptions: No Action VITAMIN D 800 PO Q DAY PRNQty: 0 Rx Instructions: winter months estradiol SUBCUT [id number] testosterone implant pellet implant Q3M Qutenza 8 % kit See Rx Instructions topical .COMPLEX Qty: 4 1RF Rx Instructions: apply up to 4 (four) CAPSAICIN PATCHES to affected area; remove patch(es) after 30-60 minutes and apply SKIN CLEANSER gel as directed topical; Referrals: Lexi Pagan DO [Primary Care Provider] - Stand Alone Forms: Patient Portal/API
--- NOTE | 2022-07-13 20:15 | PC.NURSE ---
Dr Mcdaniel in room speaking with pt, pt is aao x 3 without any c/o at this time, pt to be dc
== END 2022-07-13 20:34 | disposition home or self-care (01) ==
PROVIDERS: Emergency Medicine; Emergency Provider Emergency Medicine; PCP Family Medicine
DX: M94.0 Chondrocostal junction syndrome [Tietze] (principal); Z86.16 Personal history of COVID-19
CPT/HCPCS: 36415; 71045; 80053; 82550; 83690; 83735; 84484; 85025; 85610; 85730; 93005; 93010; 99283; 99284

== ENCOUNTER 2022-11-06 18:37 | Emergency (ER) | payer OTHER, SELFPAY ==
[2022-11-06 18:58] VITALS: BP 122/67; PULSE 76; RESP 16; TEMP 36.7; O2SAT 99; BMI 22.1
--- NOTE | 2022-11-06 20:44 | ED.HEATRA ---
HPI - Head Injury General Chief complaint: Head Injury Stated complaint: Fall/ LAC to back of head Time Seen by Provider: 11/06/22 20:31 Source: patient Mode of arrival: Ambulatory Limitations: no limitations History of Present Illness HPI Narrative: 42-year-old female. Not on anticoagulation. Is here for evaluation head injury. She states she was walking out of her trailer. She states that the stool that she was standing on slipped out from underneath her and she fell backwards. She did hit her head. She sustained a laceration back of her head. She is having a headache. No loss of consciousness. No neck pain. No other injuries from the event. Related Data Home Medications Medication Instructions Recorded Confirmed estradiol SUBCUT [id number] 09/16/22 09/16/22 testosterone implant [id number] 09/16/22 09/16/22 Allergies Allergy/AdvReac Type Severity Reaction Status Date / Time promethazine Allergy Unknown Verified 09/16/22 14:27 meperidine AdvReac Unknown Verified 09/16/22 14:27 oxycodone AdvReac Unknown Verified 09/16/22 14:27 Penicillins AdvReac Unknown Verified 09/16/22 14:27 Review of Systems Constitutional Constitutional: Reports system reviewed and no additional complaints, except as documented Eyes Eyes: Reports system reviewed and no additional complaints, except as documented Musculoskeletal Musculoskeletal: Reports system reviewed and no additional complaints, except as documented Integumentary/Breasts Skin/Breast: Reports system reviewed and no additional complaints, except as documented Neurologic Neurologic: Reports system reviewed and no additional complaints, except as documented Patient History Medical History Abdominal bloating Altered bowel function (08/2020) Constipation Endometriosis Injury of coccyx Otalgia, left ear Weight loss, unintentional (09/2020) Surgical History History of total vaginal hysterectomy (TVH) (~2008) Family History Mother Age: 80 Cancer Thyroid cancer Uterine cancer Hypertension Osteoporosis Hyperlipidemia Father Age: 82 Hypertension Gout Spinal stenosis Hyperlipidemia TIA (transient ischemic attack) Brother Age: 52 No problems noted. Brother Age: 49 No problems noted. Social History household members: spouse Smoking Status: Never smoker alcohol intake: current (5 drinks per month ) substance use type: does not use Smoking Status: Never smoker alcohol intake frequency: holidays/special occasions only Substance Use Type: does not use Exam Initial Vital Signs Initial Vital Signs: Vital Signs Temperature 98.1 F 11/06/22 18:58 Pulse Rate 76 11/06/22 18:58 Respiratory Rate 16 11/06/22 18:58 Blood Pressure 122/67 11/06/22 18:58 Pulse Oximetry 99 11/06/22 18:58 Oxygen Delivery Method Room Air 11/06/22 18:58 Const General: cooperative, comfortable and No ill appearing HENMT Head: laceration Face and sinus: normal facial exam Mouth: oral mucosae normal Resp Effort & Inspection: normal respiratory effort Cardio Rate: regular rate Skin Other: 2 cm laceration right occipital scalp. Neuro General: patient alert, patient awake, patient oriented x3 and moves all extremities Cognition: normal cognition Speech: speech normal Gait: normal gait Extrem Other: Patient moves all 4 extremities. No gross deformities. Procedures Laceration Repair Laceration 1: Site: scalp Side (If applicable): right Size (cm): 2 Description: linear Depth: simple, single layer Local Anesthetic: lidocaine 1% and with epi Amount of anesthesia used (mL): 4 Pre-repair: wound explored and deep structures intact Skin layer closed with: jarrod Scores [place] CT Head Rule Age <16 years old: No Patient on blood thinners: No Seizure after injury: No Exclusion: Patient NOT Excluded, Proceed to next steps GCS < 15 at 2 hr post trauma: No Suspected open or depressed skull fracture: No Any sign of basilar skull fracture (hemotympanum, raccoon eyes, Melendez's sign, CSF akosua-/rhinorrhea): No Two or more episodes of vomiting: No Age greater or equal to 65 years: No Retrograde amnesia to the event greater or equal to 30 min: No Dangerous Mechanism (pedestrian vs. mv, occupant ejected from mv, fall from >3 ft or > 5 stairs): No Recommendation: CT unnecessary GCS Kandi coma scale eye opening: Spontaneous [place] coma scale verbal response: Orientated Kandi coma scale motor response: Obey commands Kandi coma scale total score: 15 Nexus Score for C-Spine Focal Neurologic deficit present: No Midline spinal tenderness present: No Altered level of conciousness present: No Intoxication present: No Distracting Injury Present: No Nexus Criteria for C-spine: 0 Course Orders Ordered: Discontinued Medications Acetaminophen (Acetaminophen 325 Mg Tablet) 975 mg PO NOW ONE Stop: 11/06/22 20:45 Last Admin: 11/06/22 20:51 Dose: 975 mg Documented By: PAULETTE Vital Signs Vital signs: Vital Signs - 8 hr 11/06/22 18:58 Temperature 98.1 F Pulse Rate 76 Respiratory Rate 16 Blood Pressure 122/67 Pulse Oximetry 99 Oxygen Delivery Method Room Air MDM - Head Injury MDM Narrative Medical decision making narrative: This was a mechanical fall. Scalp laceration was closed as described above. She is no extremity injuries. Patient does not meet criteria for head CT per the [place] head CT tool. There was no signs of any depressed skull fracture. Discussed head injuries with the patient her at bedside. We did discuss care instructions and return precautions with regard to the jarrod. She was given return precautions. She expressed understanding and agreement. Discharge Plan Departure Patient Disposition: Home Clinical Impression: Fall, Closed head injury, Laceration of scalp Instructions: DI for Laceration Repair of the Scalp, DI for Closed Head Injury Activity Restrictions/Additional Instructions: You can take Tylenol or ibuprofen for any headaches. You can eat like normal and sleep like normal. You can shower like normal as well. The jarrod that were placed today do need to be removed in 7-10 days. You can go to the walk-in clinic or your primary doctor for this. Return to the emergency department for new or worsening symptoms. Prescriptions: No Action estradiol SUBCUT [id number] Patient Comments: Estradiol Pellet testosterone implant [id number] Referrals: Lexi Pagan DO [Primary Care Provider] - Stand Alone Forms: Patient Portal/API
[2022-11-06] MEDS: ACETAMINOPHEN 325 MG TABLET 975 MG PO (20:51)
== END 2022-11-06 20:56 | disposition home or self-care (01) ==
PROVIDERS: Emergency Provider Emergency Medicine; PCP Family Medicine
DX: S01.01XA Laceration without foreign body of scalp, initial encounter (principal); W18.30XA Fall on same level, unspecified, initial encounter
CPT/HCPCS: 12001; 99283

== ENCOUNTER → 2022-11-24 14:20 | Outpatient (CLI) | payer OTHER, SELFPAY ==
--- NOTE | 2022-11-24 14:21 | DI.CT.S_ITS ---
PROCEDURE: CT HEAD/BRAIN WO CON INDICATIONS: concussion s/p fall and double vision, please evaluate for bleed TECHNIQUE: Noncontrast 4.5 mm thick angled axial sections acquired from the foramen magnum to the vertex, with coronal and sagittal reformats. For radiation dose reduction, the following was used: automated exposure control, adjustment of mA and/or kV according to patient size. COMPARISON: [facility], CT, HEAD WITHOUT CONTRAST, 02/10/2012, 22:57. FINDINGS: Image quality: Excellent. CSF spaces: Basal cisterns are patent. No extra-axial fluid collections. Ventricles are normal in size and shape. Brain: No midline shift. No intracranial masses or hemorrhage. [place]-white matter interface is normal. Skull and face: Calvarium and visualized facial bones are intact, without suspicious lesions. Sinuses: Visualized sinuses and mastoids are clear. IMPRESSION: No acute intracranial hemorrhage is seen. No acute intracranial process is seen. Dictated by: Everton Forrest M.D. on 11/24/2022 at 15:13 Approved by: Everton Forrest M.D. on 11/24/2022 at 15:14
== END ==
PROVIDERS: PCP Family Medicine; Referring Provider Pediatrics; Visit Provider Pediatrics
DX: S06.0XAA Concussion with loss of consciousness status unknown, initial encounter (principal); H53.2 Diplopia
CPT/HCPCS: 70450